=== PATIENT | female | born 1940 | race Caucasian/White ===

== ENCOUNTER 2018-03-14 16:12 | Inpatient (IN) | payer OTHER, BC ==
[~2018-03-14] VITALS: Ht 154.9 cm; Wt 110.5 kg
[2018-03-14] VITALS (20 sets, daily range): BP systolic 88–169; BP diastolic 40–70
[2018-03-14 18:32] LABS: BASOPHIL (%) 0.2 % (0-1); EOSINOPHIL (%) 0 % (0-5); HEMATOCRIT 29.4 % (36.0-46.0); HEMOGLOBIN 10.5 G/DL (11.9-15.5); IMMATURE GRANULOCYTE (%) 1.1 % (0.0-0.7); LYMPHOCYTE (%) 20.2 % (15-42); MCH 37.6 PG (29.0-34.0); MCHC 35.7 G/DL (30.0-36.0); MCV 105.4 FL (83-99); MONOCYTE (%) 7.4 % (3-12); MONOCYTE COUNT 1.1 K/uL (0-0.8); NEUTROPHIL (%) 71.1 % (45-76); NEUTROPHIL COUNT 10.6 K/uL (1.8-6.4); PLATELET COUNT 234 K/uL (156-360); RBC DIS.WIDTH-CV 15.6 % (11.8-14.6); RBC DIS.WIDTH-SD 58.3 % (39-53); RED BLOOD COUNT 2.79 M/uL (3.80-5.20); WHITE BLOOD COUNT 14.9 K/uL (4.1-10.2)
[2018-03-14 18:51] LABS: INTER. NORMALIZED RATIO 1.3
[2018-03-14 18:52] LABS: APPEARANCE CLOUDY ((CLEAR)); BILIRUBIN NEGATIVE; BLOOD SMALL; COLOR AMBER ((YELLOW)); GLUCOSE (STRIP) >=500; KETONES 20; LEUKOCYTES TRACE; NITRITE NEGATIVE; PROTEIN (STRIP) >=500; SPECIFIC GRAVITY 1.015 (1.000-1.030); UROBILINOGEN 0.2 MG/DL (0.2-1.0)
[2018-03-14 18:55] LABS: ALBUMIN 3.3 G/DL (3.2-4.8); ALKALINE PHOSPHATASE 81 IU/L (3-129); ALT (GPT) 21 IU/L (3-49); AST (GOT) 27 IU/L (2-34); CHLORIDE 101 MEQ/L (99-109); CREATININE 5.8 MG/DL (0.6-1.3); GFR ESTIMATE (CALCULATED) 7 mL/min/; GLUCOSE 239 mg/dL (70-99); SODIUM 143 MEQ/L (136-147); TOTAL BILIRUBIN 0.6 MG/DL (0.0-1.0); UREA NITROGEN (BUN) 65 mg/dL (9-23)
[2018-03-14 18:58] LABS: BACTERIA NONE SEEN /HPF; EPITHELIAL CELLS RARE /HPF; MUCUS TRACE /LPF; UCUL ADDED? NO; WHITE BLOOD CELLS 0-5 /HPF (0-5)
[2018-03-14 18:58] LABS: CARBON DIOXIDE (BICARBONATE) < 10.0 MEQ/L (20-31)
[2018-03-14 18:58] LABS: TROP-I INTERPRETATION NEGATIVE; TROPONIN-I 0.07 ng/mL (0.0-0.30)
[2018-03-14 19:00] LABS: POTASSIUM 6.3 MEQ/L (3.7-5.4)
[2018-03-14 19:07] LABS: CREATINE KINASE 121 IU/L (1-294); HIGH-SENS C-REACTIVE PROTEIN 0.39 MG/DL (0.02-0.20)
[2018-03-14 19:30] LABS: THYROTROPIN (TSH) 1.4 MIU/L (0.4-5.5)
[2018-03-14 19:53] LABS: CARBOXY HGB 1.4 % (0-5); METHEMOGLOBIN 0.6 % (0-1.5); PCO2 20 mm Hg (35-45); PO2 393 mm Hg (80-100)
[2018-03-14 19:54] LABS: BASE EXCESS -18.4 mEq/L (-3 to +3); BICARBONATE 7.8 mEq/L (22-26); COMMENTS - BLOOD GASES C+A+; DEVICE VENTILATOR; FI02 100 %; MECHANICAL RATE 22 resp/min; MODE AC; PEEP 5 CM/H20; SITE RF A LINE; TIDAL VOLUME 500 ML; TOTAL RESP RATE 22 resp/min
[2018-03-14 22:25] LABS: CARBOXY HGB 1.5 % (0-5); METHEMOGLOBIN 0.8 % (0-1.5); PCO2 20 mm Hg (35-45); PO2 85 mm Hg (80-100)
[2018-03-14 22:26] LABS: BASE EXCESS -16.3 mEq/L (-3 to +3); COMMENTS - BLOOD GASES C+A+; DEVICE VENTILATOR; FI02 30 %; MECHANICAL RATE 22 resp/min; MODE AC; PEEP 5 CM/H20; SITE RF A LINE; TIDAL VOLUME 500 ML; TOTAL RESP RATE 22 resp/min; pH 7.26 (7.35-7.45)
[2018-03-15] VITALS (29 sets, daily range): BP systolic 102–188; BP diastolic 42–120
[2018-03-15 00:28] LABS: CHLORIDE 103 mEq/L (99-109); POTASSIUM 5.2 mEq/L (3.7-5.4); SODIUM 145 mEq/L (136-147)
[2018-03-15 00:30] LABS: GLUCOSE 193 mg/dL (70-99)
[2018-03-15 00:34] LABS: CREATININE 5.6 mg/dL (0.6-1.3); GFR ESTIMATE (CALCULATED) 8 mL/min/
[2018-03-15 00:35] LABS: UREA NITROGEN (BUN) 63 mg/dL (9-23)
[2018-03-15 02:00] LABS: BICARBONATE 12.1 mEq/L (22-26); CARBOXY HGB 1.6 % (0-5); METHEMOGLOBIN 0.9 % (0-1.5); PCO2 20 mm Hg (35-45); PO2 101 mm Hg (80-100); pH 7.39 (7.35-7.45)
[2018-03-15 02:01] LABS: BASE EXCESS -11.2 mEq/L (-3 to +3); COMMENTS - BLOOD GASES C+A+; DEVICE VENTILATOR; FI02 30 %; MECHANICAL RATE 22 resp/min; MODE AC; PEEP 5 CM/H20; SITE RF A LINE; TIDAL VOLUME 500 ML; TOTAL RESP RATE 22 resp/min
[2018-03-15 05:44] LABS: BASE EXCESS -9.3 mEq/L (-3 to +3); BICARBONATE 13.6 mEq/L (22-26); CARBOXY HGB 1.4 % (0-5); COMMENTS - BLOOD GASES C+A+; METHEMOGLOBIN 1.2 % (0-1.5); PCO2 21 mm Hg (35-45); PO2 116 mm Hg (80-100); SITE RF A LINE; pH 7.42 (7.35-7.45)
[2018-03-15 05:45] LABS: DEVICE VENTILATOR; FI02 30 %; MECHANICAL RATE 22 resp/min; MODE AC; PEEP 5 CM/H20; TIDAL VOLUME 500 ML; TOTAL RESP RATE 22 resp/min
[2018-03-15 05:59] LABS: CHLORIDE 103 MEQ/L (99-109); CREATININE 5.1 MG/DL (0.6-1.3); GFR ESTIMATE (CALCULATED) 9 mL/min/; GLUCOSE 159 mg/dL (70-99); PHOSPHORUS 5.5 mg/dL (2.5-4.9); SODIUM 148 MEQ/L (136-147); UREA NITROGEN (BUN) 59 mg/dL (9-23)
[2018-03-15 06:07] LABS: POTASSIUM 4.1 MEQ/L (3.7-5.4)
[2018-03-15 08:22] LABS: BASOPHIL (%) 0.2 % (0-1); EOSINOPHIL (%) 0.2 % (0-5); HEMATOCRIT 26.3 % (36.0-46.0); HEMOGLOBIN 9.8 G/DL (11.9-15.5); IMMATURE GRANULOCYTE (%) 0.3 % (0.0-0.7); LYMPHOCYTE (%) 11.3 % (15-42); LYMPHOCYTE COUNT 0.7 K/uL (1.0-2.8); MCH 36.6 PG (29.0-34.0); MCHC 37.3 G/DL (30.0-36.0); MCV 98.1 FL (83-99); MONOCYTE (%) 4.7 % (3-12); MONOCYTE COUNT 0.3 K/uL (0-0.8); NEUTROPHIL (%) 83.3 % (45-76); NEUTROPHIL COUNT 5.3 K/uL (1.8-6.4); PLATELET COUNT 166 K/uL (156-360); RBC DIS.WIDTH-CV 16.5 % (11.8-14.6); RBC DIS.WIDTH-SD 54.4 % (39-53); RED BLOOD COUNT 2.68 M/uL (3.80-5.20); WHITE BLOOD COUNT 6.4 K/uL (4.1-10.2)
[2018-03-15 08:36] LABS: CHLORIDE 102 MEQ/L (99-109); CREATININE 5.2 MG/DL (0.6-1.3); GFR ESTIMATE (CALCULATED) 9 mL/min/; GLUCOSE 166 mg/dL (70-99); PHOSPHORUS 5.6 mg/dL (2.5-4.9); POTASSIUM 4.1 MEQ/L (3.7-5.4); SODIUM 150 MEQ/L (136-147); UREA NITROGEN (BUN) 59 mg/dL (9-23)
[2018-03-15 09:55] LABS: INTER. NORMALIZED RATIO 1.4
[2018-03-15 10:01] LABS: HEMOGLOBIN A1c (GLYCOHEMOGLOB) 6.4 % (Below 5.7)
[2018-03-15 12:41] LABS: CHLORIDE 99 MEQ/L (99-109); GFR ESTIMATE (CALCULATED) 9 mL/min/; GLUCOSE 164 mg/dL (70-99); PHOSPHORUS 5.4 mg/dL (2.5-4.9); SODIUM 150 MEQ/L (136-147); UREA NITROGEN (BUN) 58 mg/dL (9-23)
[2018-03-15 17:47] LABS: CHLORIDE 99 MEQ/L (99-109); CREATININE 4.7 MG/DL (0.6-1.3); GFR ESTIMATE (CALCULATED) 10 mL/min/; GLUCOSE 222 mg/dL (70-99); PHOSPHORUS 5.8 mg/dL (2.5-4.9); SODIUM 147 MEQ/L (136-147); UREA NITROGEN (BUN) 53 mg/dL (9-23)
[2018-03-15 18:57] LABS: SITE R FEMORAL ALINE
[2018-03-15 18:58] LABS: BASE EXCESS -7.9 mEq/L (-3 to +3); BICARBONATE 14.9 mEq/L (22-26); CARBOXY HGB 1.7 % (0-5); COMMENTS - BLOOD GASES C+; DEVICE VENT; FI02 30 %; MECHANICAL RATE 22 resp/min; METHEMOGLOBIN 1.4 % (0-1.5); MODE AC; O2 SATURATION (CALCULATED) 98 % (95-99); PCO2 22 mm Hg (35-45); PEEP 5 CM/H20; PO2 87 mm Hg (80-100); TIDAL VOLUME 500 ML; TOTAL RESP RATE 22 resp/min; pH 7.44 (7.35-7.45)
[2018-03-15 20:12] LABS: MAGNESIUM 1.1 mg/dl (1.3-2.7)
[2018-03-15 21:12] LABS: CHLORIDE 101 MEQ/L (99-109); CREATININE 4.2 MG/DL (0.6-1.3); GFR ESTIMATE (CALCULATED) 11 mL/min/; GLUCOSE 216 mg/dL (70-99); PHOSPHORUS 4.5 mg/dL (2.5-4.9); POTASSIUM 3.5 MEQ/L (3.7-5.4); SODIUM 145 MEQ/L (136-147); UREA NITROGEN (BUN) 50 mg/dL (9-23)
[2018-03-16] VITALS (19 sets, daily range): BP systolic 93–159; BP diastolic 42–83
[2018-03-16 06:07] LABS: CHLORIDE 101 MEQ/L (99-109); GFR ESTIMATE (CALCULATED) 12 mL/min/; GLUCOSE 182 mg/dL (70-99); POTASSIUM 3.2 MEQ/L (3.7-5.4); SODIUM 147 MEQ/L (136-147); UREA NITROGEN (BUN) 45 mg/dL (9-23); VANCOMYCIN, TROUGH 12.1 MCG/ML (10-20)
[2018-03-16 06:16] LABS: MAGNESIUM 1.7 mg/dl (1.3-2.7); PHOSPHORUS 2.6 mg/dL (2.5-4.9)
[2018-03-16 08:10] LABS: HEMATOCRIT 25.6 % (36.0-46.0); HEMOGLOBIN 8.7 G/DL (11.9-15.5); MCH 31.9 PG (29.0-34.0); PLATELET COUNT 126 K/uL (156-360); RBC DIS.WIDTH-CV 16.1 % (11.8-14.6); RBC DIS.WIDTH-SD 55.3 % (39-53); RED BLOOD COUNT 2.73 M/uL (3.80-5.20); WHITE BLOOD COUNT 4.2 K/uL (4.1-10.2)
[2018-03-16 08:11] LABS: MCV 93.8 FL (83-99)
[2018-03-16] MEDS ORDERED: ASPIR 8181 M1 PO (14:11)
[2018-03-16] MEDS ORDERED: BUMETANIDE1 MG PO (14:12)
[2018-03-16] MEDS ORDERED: CENTRUM SILVER1 EAC3 PO (14:12)
[2018-03-16] MEDS ORDERED: COREG6.25 M1 PO (14:12)
[2018-03-16] MEDS ORDERED: ATORVASTATIN CA80 MG PO (14:12)
[2018-03-16] MEDS ORDERED: BETIMOL 0.100 DROP/5 BOTH EYES (14:13)
[2018-03-16] MEDS ORDERED: CATAPRES0.1 MG PO (14:13)
[2018-03-16] MEDS ORDERED: NOVOLIN,HU100 UNITS/ SC (14:13)
[2018-03-16] MEDS ORDERED: GLUCOPHAGE500 MG PO (14:13)
[2018-03-16] MEDS ORDERED: DIPROSONE 0.05%15 GM TP (14:14)
[2018-03-16] MEDS ORDERED: VITAMIN D31000 UNIT PO (14:14)
[2018-03-16] MEDS ORDERED: RAYOS2 MG PO (14:15)
[2018-03-16 23:48] LABS: HEMATOCRIT 24.8 % (36.0-46.0); MCH 34.4 PG (29.0-34.0); MCHC 36.3 G/DL (30.0-36.0); MCV 94.7 FL (83-99); PLATELET COUNT 131 K/uL (156-360); RBC DIS.WIDTH-CV 15.8 % (11.8-14.6); RBC DIS.WIDTH-SD 51.9 % (39-53); RED BLOOD COUNT 2.62 M/uL (3.80-5.20); WHITE BLOOD COUNT 6.1 K/uL (4.1-10.2)
[2018-03-17] VITALS (18 sets, daily range): BP systolic 100–159; BP diastolic 43–70
[2018-03-17] LABS: CHLORIDE 101 mEq/L (99-109); POTASSIUM 3.3 mEq/L (3.7-5.4); SODIUM 141 mEq/L (136-147)
[2018-03-17 00:01] LABS: ALBUMIN 2.6 g/dL (3.2-4.8); MAGNESIUM 1.4 mg/dL (1.3-2.7)
[2018-03-17 00:03] LABS: GLUCOSE 175 mg/dL (70-99); TOTAL PROTEIN 4.1 g/dL (6.4-8.3)
[2018-03-17 00:05] LABS: TOTAL BILIRUBIN 1.6 mg/dL (0.0-1.0)
[2018-03-17 00:07] LABS: ALKALINE PHOSPHATASE 83 IU/L (3-129)
[2018-03-17 00:08] LABS: AST (GOT) 18 IU/L (2-34)
[2018-03-17 00:10] LABS: ALT (GPT) 12 IU/L (3-49)
[2018-03-17 00:22] LABS: CREATININE 1.6 mg/dL (0.6-1.3); GFR ESTIMATE (CALCULATED) 33 mL/min/; UREA NITROGEN (BUN) 12 mg/dL (9-23)
[2018-03-17 05:30] LABS: HEMATOCRIT 24.2 % (36.0-46.0); HEMOGLOBIN 8.7 G/DL (11.9-15.5); MCH 34.1 PG (29.0-34.0); MCV 94.9 FL (83-99); PLATELET COUNT 131 K/uL (156-360); RBC DIS.WIDTH-CV 15.9 % (11.8-14.6); RBC DIS.WIDTH-SD 53.1 % (39-53); RED BLOOD COUNT 2.55 M/uL (3.80-5.20); WHITE BLOOD COUNT 5.8 K/uL (4.1-10.2)
[2018-03-17 06:14] LABS: CHLORIDE 101 MEQ/L (99-109); CREATININE 1.7 MG/DL (0.6-1.3); GFR ESTIMATE (CALCULATED) 31 mL/min/; GLUCOSE 153 mg/dL (70-99); PHOSPHORUS 3.1 mg/dL (2.5-4.9); POTASSIUM 3.8 MEQ/L (3.7-5.4); SODIUM 144 MEQ/L (136-147); UREA NITROGEN (BUN) 12 mg/dL (9-23)
[2018-03-17 06:17] LABS: MAGNESIUM 2.1 mg/dl (1.3-2.7)
[2018-03-17 12:13] LABS: HEPATITIS B SURFACE ANTIBODY Nonreactive; HEPATITIS B SURFACE ANTIGEN Nonreactive
[2018-03-17 15:11] LABS: CHLORIDE 104 MEQ/L (99-109); CREATININE 1.8 MG/DL (0.6-1.3); GFR ESTIMATE (CALCULATED) 29 mL/min/; GLUCOSE 172 mg/dL (70-99); POTASSIUM 3.3 MEQ/L (3.7-5.4); SODIUM 144 MEQ/L (136-147); UREA NITROGEN (BUN) 13 mg/dL (9-23)
[2018-03-18] VITALS (8 sets, daily range): BP systolic 114–139; BP diastolic 47–78
[2018-03-18 08:26] LABS: BASOPHIL (%) 0.4 % (0-1); EOSINOPHIL (%) 4.1 % (0-5); EOSINOPHIL COUNT 0.2 K/uL (0-0.3); HEMATOCRIT 23.3 % (36.0-46.0); HEMOGLOBIN 7.9 G/DL (11.9-15.5); IMMATURE GRANULOCYTE (%) 0.2 % (0.0-0.7); LYMPHOCYTE (%) 24.4 % (15-42); LYMPHOCYTE COUNT 1.3 K/uL (1.0-2.8); MCH 32.9 PG (29.0-34.0); MCHC 33.9 G/DL (30.0-36.0); MCV 97.1 FL (83-99); MONOCYTE (%) 4.9 % (3-12); MONOCYTE COUNT 0.3 K/uL (0-0.8); NEUTROPHIL COUNT 3.5 K/uL (1.8-6.4); PLATELET COUNT 116 K/uL (156-360); RBC DIS.WIDTH-CV 15.7 % (11.8-14.6); RBC DIS.WIDTH-SD 55.2 % (39-53); WHITE BLOOD COUNT 5.3 K/uL (4.1-10.2)
[2018-03-18 09:01] LABS: CHLORIDE 106 MEQ/L (99-109); CREATININE 1.8 MG/DL (0.6-1.3); GFR ESTIMATE (CALCULATED) 29 mL/min/; GLUCOSE 179 mg/dL (70-99); PHOSPHORUS 2.4 mg/dL (2.5-4.9); POTASSIUM 3.3 MEQ/L (3.7-5.4); SODIUM 142 MEQ/L (136-147); UREA NITROGEN (BUN) 14 mg/dL (9-23)
[2018-03-18 09:07] LABS: MAGNESIUM 1.5 mg/dl (1.3-2.7)
[2018-03-18 09:30] LABS: ALBUMIN 2.1 G/DL (3.2-4.8); ALKALINE PHOSPHATASE 82 IU/L (3-129); ALT (GPT) 12 IU/L (3-49); CHLORIDE 107 MEQ/L (99-109); CREATININE 1.8 MG/DL (0.6-1.3); GFR ESTIMATE (CALCULATED) 29 mL/min/; GLUCOSE 178 mg/dL (70-99); POTASSIUM 3.3 MEQ/L (3.7-5.4); SODIUM 142 MEQ/L (136-147); UREA NITROGEN (BUN) 14 mg/dL (9-23); VANCOMYCIN, TROUGH 15.4 MCG/ML (10-20)
[2018-03-18 09:31] LABS: TOTAL BILIRUBIN 1.3 MG/DL (0.0-1.0); TOTAL PROTEIN 3.8 G/DL (6.4-8.3)
[2018-03-18 09:32] LABS: AST (GOT) 13 IU/L (2-34)
[2018-03-19 05:40] LABS: BASOPHIL (%) 0.3 % (0-1); EOSINOPHIL (%) 3.9 % (0-5); EOSINOPHIL COUNT 0.1 K/uL (0-0.3); HEMATOCRIT 17.9 % (36.0-46.0); IMMATURE GRANULOCYTE (%) 0.6 % (0.0-0.7); LYMPHOCYTE (%) 23.1 % (15-42); LYMPHOCYTE COUNT 0.8 K/uL (1.0-2.8); MCH 36.3 PG (29.0-34.0); MCHC 36.3 G/DL (30.0-36.0); MONOCYTE (%) 5.1 % (3-12); MONOCYTE COUNT 0.2 K/uL (0-0.8); NEUTROPHIL COUNT 2.2 K/uL (1.8-6.4); RBC DIS.WIDTH-CV 15.8 % (11.8-14.6); RBC DIS.WIDTH-SD 54.8 % (39-53); WHITE BLOOD COUNT 3.3 K/uL (4.1-10.2)
[2018-03-19 05:46] LABS: HEMOGLOBIN 6.5 G/DL (11.9-15.5); RED BLOOD COUNT 1.79 M/uL (3.80-5.20)
[2018-03-19 05:57] LABS: ALBUMIN 2.7 G/DL (3.2-4.8); ALKALINE PHOSPHATASE 84 IU/L (3-129); ALT (GPT) 9 IU/L (3-49); AST (GOT) 11 IU/L (2-34); CHLORIDE 107 MEQ/L (99-109); CREATININE 1.6 MG/DL (0.6-1.3); GFR ESTIMATE (CALCULATED) 33 mL/min/; GLUCOSE 162 mg/dL (70-99); SODIUM 143 MEQ/L (136-147); TOTAL PROTEIN 4.1 G/DL (6.4-8.3); UREA NITROGEN (BUN) 13 mg/dL (9-23)
[2018-03-19 06:22] LABS: HEMATOLOGY COMMENT 1 SN
[2018-03-19 06:24] LABS: PLATELET COUNT UNABLE TO REPORT K/uL (156-360)
[2018-03-19 06:30] LABS: MAGNESIUM 1.2 mg/dl (1.3-2.7); PHOSPHORUS 1.5 mg/dL (2.5-4.9)
[2018-03-19 08:24] VITALS: BP 140/63
[2018-03-19 09:24] VITALS: BP 124/57
[2018-03-19 10:28] VITALS: BP 139/59
[2018-03-19 12:32] LABS: HEMATOCRIT 20.7 % (36.0-46.0); HEMOGLOBIN 7.4 G/DL (11.9-15.5); MCV 95.8 FL (83-99)
[2018-03-20 05:07] LABS: CHLORIDE 112 mEq/L (99-109); POTASSIUM 2.8 mEq/L (3.7-5.4); SODIUM 143 mEq/L (136-147)
[2018-03-20 05:08] LABS: MAGNESIUM 1.4 mg/dL (1.3-2.7)
[2018-03-20 05:09] LABS: GLUCOSE 137 mg/dL (70-99)
[2018-03-20 05:12] LABS: BASOPHIL (%) 0.6 % (0-1); EOSINOPHIL (%) 6.4 % (0-5); EOSINOPHIL COUNT 0.2 K/uL (0-0.3); HEMOGLOBIN 7.9 G/DL (11.9-15.5); IMMATURE GRANULOCYTE (%) 0.6 % (0.0-0.7); LYMPHOCYTE (%) 26.3 % (15-42); LYMPHOCYTE COUNT 0.9 K/uL (1.0-2.8); MCH 31.9 PG (29.0-34.0); MCHC 34.3 G/DL (30.0-36.0); MCV 92.7 FL (83-99); MONOCYTE (%) 9.2 % (3-12); MONOCYTE COUNT 0.3 K/uL (0-0.8); NEUTROPHIL (%) 56.9 % (45-76); NEUTROPHIL COUNT 1.9 K/uL (1.8-6.4); PLATELET COUNT 81 K/uL (156-360); RBC DIS.WIDTH-CV 16.1 % (11.8-14.6); RBC DIS.WIDTH-SD 54.7 % (39-53); RED BLOOD COUNT 2.48 M/uL (3.80-5.20); WHITE BLOOD COUNT 3.3 K/uL (4.1-10.2)
[2018-03-20 05:13] LABS: CREATININE 1.3 mg/dL (0.6-1.3); GFR ESTIMATE (CALCULATED) 42 mL/min/
[2018-03-20 05:14] LABS: UREA NITROGEN (BUN) 10 mg/dL (9-23)
[2018-03-20 05:22] LABS: PHOSPHORUS 1.7 mg/dL (2.5-4.9)
[2018-03-20 10:18] VITALS: BP 130/64
[2018-03-20 19:00] VITALS: BP 151/58
[2018-03-21 02:00] VITALS: BP 153/53
[2018-03-21 06:20] LABS: BASOPHIL (%) 0.5 % (0-1); EOSINOPHIL (%) 4.5 % (0-5); EOSINOPHIL COUNT 0.2 K/uL (0-0.3); HEMATOCRIT 21.1 % (36.0-46.0); IMMATURE GRANULOCYTE (%) 1.1 % (0.0-0.7); LYMPHOCYTE (%) 25.8 % (15-42); MCH 37.6 PG (29.0-34.0); MCHC 37.9 G/DL (30.0-36.0); MONOCYTE COUNT 0.3 K/uL (0-0.8); NEUTROPHIL (%) 60.1 % (45-76); NEUTROPHIL COUNT 2.3 K/uL (1.8-6.4); RBC DIS.WIDTH-CV 16.4 % (11.8-14.6); RBC DIS.WIDTH-SD 57.1 % (39-53); RED BLOOD COUNT 2.13 M/uL (3.80-5.20); WHITE BLOOD COUNT 3.8 K/uL (4.1-10.2)
[2018-03-21 06:25] LABS: MCV 99.1 FL (83-99); PLATELET COUNT 111 K/uL (156-360)
[2018-03-21 07:11] LABS: CHLORIDE 113 MEQ/L (99-109); GFR ESTIMATE (CALCULATED) 57 mL/min/; GLUCOSE 155 mg/dL (70-99); MAGNESIUM 1.3 mg/dl (1.3-2.7); PHOSPHORUS 1.7 mg/dL (2.5-4.9); SODIUM 143 MEQ/L (136-147); UREA NITROGEN (BUN) 10 mg/dL (9-23)
[2018-03-21 07:13] LABS: POTASSIUM 3.6 MEQ/L (3.7-5.4)
[2018-03-21 08:35] VITALS: BP 145/66
[2018-03-22] VITALS (12 sets, daily range): BP systolic 111–153; BP diastolic 39–83
[2018-03-22 05:33] LABS: HEMATOCRIT 22.3 % (36.0-46.0); HEMOGLOBIN 7.9 G/DL (11.9-15.5); MCH 35.6 PG (29.0-34.0); MCHC 35.4 G/DL (30.0-36.0); MCV 100.5 FL (83-99); PLATELET COUNT 142 K/uL (156-360); RBC DIS.WIDTH-CV 16.4 % (11.8-14.6); RBC DIS.WIDTH-SD 58.1 % (39-53); RED BLOOD COUNT 2.22 M/uL (3.80-5.20); WHITE BLOOD COUNT 3.7 K/uL (4.1-10.2)
[2018-03-22 06:15] LABS: CHLORIDE 112 MEQ/L (99-109); CREATININE 0.9 MG/DL (0.6-1.3); GFR ESTIMATE (CALCULATED) > 59 mL/min/; GLUCOSE 186 mg/dL (70-99); SODIUM 142 MEQ/L (136-147); UREA NITROGEN (BUN) 11 mg/dL (9-23)
[2018-03-22 06:21] LABS: MAGNESIUM 1.8 mg/dl (1.3-2.7); PHOSPHORUS 2.7 mg/dL (2.5-4.9); POTASSIUM 4.7 MEQ/L (3.7-5.4)
[2018-03-22 11:46] LABS: COMMENTS - BLOOD GASES C+; DEVICE 840; FI02 30 %; MODE SPON; SITE ALINE; TOTAL RESP RATE 25 resp/min
[2018-03-22 11:47] LABS: BASE EXCESS -7.3 mEq/L (-3 to +3); BICARBONATE 17.8 mEq/L (22-26); CARBOXY HGB 1.8 % (0-5); METHEMOGLOBIN 0.6 % (0-1.5); PCO2 33 mm Hg (35-45); PEEP 5 CM/H20; PO2 111 mm Hg (80-100); PRES. SUPPORT 10 CM/H2O; pH 7.34 (7.35-7.45)
[2018-03-23] VITALS (24 sets, daily range): BP systolic 97–164; BP diastolic 35–83
[2018-03-23 05:26] LABS: BASOPHIL (%) 0.2 % (0-1); EOSINOPHIL (%) 3.9 % (0-5); EOSINOPHIL COUNT 0.2 K/uL (0-0.3); HEMATOCRIT 20.5 % (36.0-46.0); HEMOGLOBIN 7.3 G/DL (11.9-15.5); IMMATURE GRANULOCYTE (%) 1.2 % (0.0-0.7); LYMPHOCYTE (%) 19.3 % (15-42); LYMPHOCYTE COUNT 0.8 K/uL (1.0-2.8); MCH 36.9 PG (29.0-34.0); MCHC 35.6 G/DL (30.0-36.0); MCV 103.5 FL (83-99); MONOCYTE (%) 9.9 % (3-12); MONOCYTE COUNT 0.4 K/uL (0-0.8); NEUTROPHIL (%) 65.5 % (45-76); NEUTROPHIL COUNT 2.7 K/uL (1.8-6.4); PLATELET COUNT 177 K/uL (156-360); RBC DIS.WIDTH-CV 16.3 % (11.8-14.6); RED BLOOD COUNT 1.98 M/uL (3.80-5.20); WHITE BLOOD COUNT 4.2 K/uL (4.1-10.2)
[2018-03-23 05:59] LABS: CHLORIDE 109 MEQ/L (99-109); CREATININE 0.8 MG/DL (0.6-1.3); GFR ESTIMATE (CALCULATED) > 59 mL/min/; GLUCOSE 165 mg/dL (70-99); POTASSIUM 4.1 MEQ/L (3.7-5.4); SODIUM 143 MEQ/L (136-147); UREA NITROGEN (BUN) 10 mg/dL (9-23)
[2018-03-23 06:04] LABS: MAGNESIUM 1.5 mg/dl (1.3-2.7)
[2018-03-24] VITALS (19 sets, daily range): BP systolic 110–159; BP diastolic 45–88
[2018-03-24 06:14] LABS: BASOPHIL (%) 0.5 % (0-1); EOSINOPHIL (%) 2.6 % (0-5); EOSINOPHIL COUNT 0.1 K/uL (0-0.3); HEMATOCRIT 21.4 % (36.0-46.0); HEMOGLOBIN 7.6 G/DL (11.9-15.5); IMMATURE GRANULOCYTE (%) 0.9 % (0.0-0.7); LYMPHOCYTE (%) 25.6 % (15-42); LYMPHOCYTE COUNT 1.1 K/uL (1.0-2.8); MCH 36.5 PG (29.0-34.0); MCHC 35.5 G/DL (30.0-36.0); MCV 102.9 FL (83-99); MONOCYTE (%) 9.6 % (3-12); MONOCYTE COUNT 0.4 K/uL (0-0.8); NEUTROPHIL (%) 60.8 % (45-76); NEUTROPHIL COUNT 2.6 K/uL (1.8-6.4); PLATELET COUNT 212 K/uL (156-360); RBC DIS.WIDTH-SD 58.6 % (39-53); RED BLOOD COUNT 2.08 M/uL (3.80-5.20); WHITE BLOOD COUNT 4.3 K/uL (4.1-10.2)
[2018-03-24 06:42] LABS: CHLORIDE 107 MEQ/L (99-109); CREATININE 0.8 MG/DL (0.6-1.3); GFR ESTIMATE (CALCULATED) > 59 mL/min/; GLUCOSE 157 mg/dL (70-99); MAGNESIUM 1.6 mg/dl (1.3-2.7); PHOSPHORUS 2.4 mg/dL (2.5-4.9); POTASSIUM 4.2 MEQ/L (3.7-5.4); SODIUM 144 MEQ/L (136-147); UREA NITROGEN (BUN) 10 mg/dL (9-23)
[2018-03-25 03:54] VITALS: BP 138/65
[2018-03-25 06:45] LABS: BASOPHIL (%) 0.4 % (0-1); EOSINOPHIL COUNT 0.1 K/uL (0-0.3); HEMATOCRIT 23.2 % (36.0-46.0); HEMOGLOBIN 7.9 G/DL (11.9-15.5); IMMATURE GRANULOCYTE (%) 1.1 % (0.0-0.7); LYMPHOCYTE (%) 22.8 % (15-42); MCH 35.1 PG (29.0-34.0); MCHC 34.1 G/DL (30.0-36.0); MCV 103.1 FL (83-99); MONOCYTE COUNT 0.4 K/uL (0-0.8); NEUTROPHIL (%) 65.7 % (45-76); PLATELET COUNT 252 K/uL (156-360); RBC DIS.WIDTH-CV 15.9 % (11.8-14.6); RBC DIS.WIDTH-SD 58.6 % (39-53); RED BLOOD COUNT 2.25 M/uL (3.80-5.20); WHITE BLOOD COUNT 4.5 K/uL (4.1-10.2)
[2018-03-25 06:58] VITALS: BP 182/79
[2018-03-25 07:09] LABS: CHLORIDE 107 MEQ/L (99-109); CREATININE 0.7 MG/DL (0.6-1.3); GFR ESTIMATE (CALCULATED) > 59 mL/min/; GLUCOSE 208 mg/dL (70-99); MAGNESIUM 1.7 mg/dl (1.3-2.7); PHOSPHORUS 2.4 mg/dL (2.5-4.9); POTASSIUM 3.7 MEQ/L (3.7-5.4); SODIUM 144 MEQ/L (136-147); UREA NITROGEN (BUN) 11 mg/dL (9-23)
[2018-03-25 16:10] VITALS: BP 148/68
[2018-03-25 19:00] VITALS: BP 164/72
[2018-03-26] VITALS (7 sets, daily range): BP systolic 123–163; BP diastolic 58–71
[2018-03-26 06:37] LABS: BASOPHIL (%) 0.6 % (0-1); EOSINOPHIL (%) 2.2 % (0-5); EOSINOPHIL COUNT 0.1 K/uL (0-0.3); HEMATOCRIT 22.9 % (36.0-46.0); HEMOGLOBIN 7.9 G/DL (11.9-15.5); IMMATURE GRANULOCYTE (%) 0.8 % (0.0-0.7); LYMPHOCYTE COUNT 1.4 K/uL (1.0-2.8); MCH 35.3 PG (29.0-34.0); MCHC 34.5 G/DL (30.0-36.0); MCV 102.2 FL (83-99); MONOCYTE COUNT 0.4 K/uL (0-0.8); NEUTROPHIL (%) 61.4 % (45-76); NEUTROPHIL COUNT 3.1 K/uL (1.8-6.4); PLATELET COUNT 275 K/uL (156-360); RBC DIS.WIDTH-CV 15.9 % (11.8-14.6); RBC DIS.WIDTH-SD 57.1 % (39-53); RED BLOOD COUNT 2.24 M/uL (3.80-5.20)
[2018-03-26 07:02] LABS: CHLORIDE 106 MEQ/L (99-109); CREATININE 0.7 MG/DL (0.6-1.3); GFR ESTIMATE (CALCULATED) > 59 mL/min/; GLUCOSE 190 mg/dL (70-99); MAGNESIUM 1.5 mg/dl (1.3-2.7); PHOSPHORUS 2.4 mg/dL (2.5-4.9); POTASSIUM 3.7 MEQ/L (3.7-5.4); SODIUM 144 MEQ/L (136-147); UREA NITROGEN (BUN) 10 mg/dL (9-23)
[2018-03-26 08:35] LABS: IRON 42 MCG/DL (35-150); TRANSFERRIN (TIBC) 118.9 mg/dL (215-380); TRANSFERRIN SATUR. 35 % (20-55)
[2018-03-26 08:53] LABS: FERRITIN 282 NG/ML (10-291)
[2018-03-26 10:03] LABS: FOLIC ACID (FOLATE) > 22.0 NG/ML (5.0-22.0)
[2018-03-26 18:21] LABS: STOOL OCCULT BLD 1ST SPECIMEN NEGATIVE
[2018-03-27 03:11] VITALS: BP 160/76
[2018-03-27 04:01] VITALS: BP 142/64
[2018-03-27 07:24] LABS: BASOPHIL (%) 0.4 % (0-1); EOSINOPHIL (%) 2.6 % (0-5); EOSINOPHIL COUNT 0.1 K/uL (0-0.3); HEMATOCRIT 21.5 % (36.0-46.0); HEMOGLOBIN 7.6 G/DL (11.9-15.5); IMMATURE GRANULOCYTE (%) 0.4 % (0.0-0.7); LYMPHOCYTE (%) 30.7 % (15-42); LYMPHOCYTE COUNT 1.4 K/uL (1.0-2.8); MCH 35.7 PG (29.0-34.0); MCHC 35.3 G/DL (30.0-36.0); MCV 100.9 FL (83-99); MONOCYTE (%) 6.3 % (3-12); MONOCYTE COUNT 0.3 K/uL (0-0.8); NEUTROPHIL (%) 59.6 % (45-76); NEUTROPHIL COUNT 2.8 K/uL (1.8-6.4); PLATELET COUNT 291 K/uL (156-360); RBC DIS.WIDTH-CV 15.9 % (11.8-14.6); RBC DIS.WIDTH-SD 56.3 % (39-53); RED BLOOD COUNT 2.13 M/uL (3.80-5.20); WHITE BLOOD COUNT 4.6 K/uL (4.1-10.2)
[2018-03-27 07:40] VITALS: BP 140/65
[2018-03-27 08:30] LABS: CHLORIDE 104 MEQ/L (99-109); CREATININE 0.7 MG/DL (0.6-1.3); GFR ESTIMATE (CALCULATED) > 59 mL/min/; GLUCOSE 189 mg/dL (70-99); MAGNESIUM 1.4 mg/dl (1.3-2.7); PHOSPHORUS 2.8 mg/dL (2.5-4.9); POTASSIUM 3.6 MEQ/L (3.7-5.4); SODIUM 143 MEQ/L (136-147); UREA NITROGEN (BUN) 10 mg/dL (9-23)
[2018-03-27] MEDS ORDERED: CARVEDILOL12.5 MG PO (12:05)
[2018-03-27] MEDS ORDERED: BUMETANIDE1 MG PO (12:06)
[2018-03-27] MEDS ORDERED: NOVOLOG 10100 UNITS/ SC (12:09)
[2018-03-27] MEDS ORDERED: LEVEMIR100 UNIT/2 SC (12:09)
[2018-03-27] MEDS ORDERED: AMOXICILLIN500 MG PO (12:11)
[2018-03-27] MEDS ORDERED: DOXYCYCLINE HY100 MG PO (12:13)
[2018-03-27] MEDS ORDERED: SEROQUEL12.5 MG PO (12:15)
== END 2018-03-27 14:57 | DRG 853 ==
LOC: ENRESERV 16:12 → 4WEST 16:12 → 5EAST 17:33 → ENRESERV 17:51 → 4WEST 03-15 16:10 → ENRESERV 03-24 08:23 → 4WEST 03-24 12:50 → ENRESERV 03-24 12:51 → 5EAST 03-24 16:44
PROVIDERS: Emergency Medicine; Internal Medicine; Internal Medicine Critical Care Medicine; Internal Medicine Nephrology; Obstetrics & Gynecology; Physician Assistant; Specialist
PROC: 0BH17EZ Insertion of Endotracheal Airway into Trachea, Via Natural or Artificial Opening (ICD-10-PCS; principal; 2018-03-14)
PROC: 5A1955Z Respiratory Ventilation, Greater than 96 Consecutive Hours (ICD-10-PCS; principal; 2018-03-14)
PROC: 04HY32Z Insertion of Monitoring Device into Lower Artery, Percutaneous Approach (ICD-10-PCS; 2018-03-14)
PROC: 0DN80ZZ Release Small Intestine, Open Approach (ICD-10-PCS; 2018-03-15)
PROC: 0DQ80ZZ Repair Small Intestine, Open Approach (ICD-10-PCS; 2018-03-15)
PROC: 02HV33Z Insertion of Infusion Device into Superior Vena Cava, Percutaneous Approach (ICD-10-PCS; 2018-03-15)
PROC: 5A1D70Z Performance of Urinary Filtration, Intermittent, Less than 6 Hours Per Day (ICD-10-PCS; 2018-03-16)
PROC: 30233N1 Transfusion of Nonautologous Red Blood Cells into Peripheral Vein, Percutaneous Approach (ICD-10-PCS; 2018-03-19)
DX: A41.9 Sepsis, unspecified organism (principal); J15.212 Pneumonia due to Methicillin resistant Staphylococcus aureus; J96.90 Respiratory failure, unspecified, unspecified whether with hypoxia or hypercapnia; N17.0 Acute kidney failure with tubular necrosis; R65.21 Severe sepsis with septic shock; R57.8 Other shock; K56.50 Intestinal adhesions [bands], unspecified as to partial versus complete obstruction; K65.9 Peritonitis, unspecified; R18.8 Other ascites; E11.10 Type 2 diabetes mellitus with ketoacidosis without coma; E87.5 Hyperkalemia; E83.51 Hypocalcemia; E86.0 Dehydration; I80.8 Phlebitis and thrombophlebitis of other sites; E83.42 Hypomagnesemia; E87.6 Hypokalemia; I10 Essential (primary) hypertension; I48.2 Chronic atrial fibrillation; I25.10 Atherosclerotic heart disease of native coronary artery without angina pectoris; D64.9 Anemia, unspecified; H40.9 Unspecified glaucoma; J98.11 Atelectasis; Z96.651 Presence of right artificial knee joint; E66.01 Morbid (severe) obesity due to excess calories; Z68.42 Body mass index [BMI] 45.0-49.9, adult; I25.2 Old myocardial infarction; Z79.4 Long term (current) use of insulin; Z86.010 Personal history of colon polyps
CPT/HCPCS: 36600; 71045; 71250; 74018; 74176; 80048; 80048 91; 80053; 80202; 81003; 82010; 82272; 82330; 82533 91; 82550; 82607; 82728; 82746; 82803; 82948; 83036; 83540; 83605; 83735; 84100; 84145 90; 84443; 84466; 84484; 85014; 85018; 85025; 85027; 85610; 85730; 86141; 86706; 86850; 86900; 86901; 86920; 87040; 87070; 87077; 87147; 87186; 87205; 87340; 87641; 92610 GN; 93005; 93971; 94002; 94003; 94640; 94760; 94799; 97530 GO; 97530 GP; 99202; A6214; C1751; C1788; C9113; J0330; J0696; J1170; J1644; J1815; J1940; J2405; J2704; J3010; J3370; J3411; J3475; J3480; J7030; J7040; J7050; J7070; P9016; P9045; P9047; S0030